=== PATIENT | female | born 1980 | race Caucasian/White ===

== ENCOUNTER 2017-11-20 09:25 | Emergency (ER) | payer MEDICAID ==
[2017-11-20 09:36] VITALS: BMI 25.2
[2017-11-20 09:38] VITALS: BP 128/91; PULSE 68; RESP 20; TEMP 98.1; O2SAT 100
--- NOTE | 2017-11-20 09:42 | C.PDOC ---
History Of Present Illness Pt is a 36 yr old female who states that for 3 days she has been having back pain. The pain occurred while at work when she was bending down (works construction/cleaning). The pain starts in the lower back and it radiates to the left leg (to the left foot) and also travels to the neck (which is not unusual for her when she gets back pain). Pt has had low back before but didn' t travel to the back before. Pt took ibuprofen 800 mg at 4:30 AM today. The medication did help a little. On a 1-10 scale, her pain is a "8". When she sits too long and goes to standing that makes the pain worse. Moving makes the pain worse. Pt has not seen a doctor in the past for the back pain but does have an appointment for next Wednesday. Pt states she is not . PMD: [facility] . Time Seen by Provider: 11/20/17 09:39 Chief Complaint (Nursing): Back Pain Onset/Duration Of Symptoms: Days Past Medical History Reviewed: Historical Data, Nursing Documentation, Vital Signs Vital Signs: Last Vital Signs Temp 98.1 F 11/20/17 09:35 Pulse 68 11/20/17 09:35 Resp 20 11/20/17 09:35 BP 128/91 H 11/20/17 09:35 Pulse Ox 100 11/20/17 09:53 - Medical History PMH: Asthma - [facility] Procedures MANUAL ASSIST DELIV NEC (01/08/15) MEDICAL INDUCTION LABOR (01/08/15) NEBULIZER THERAPY (09/11/14) REPAIR OB LACERATION NEC (01/08/15) Family History: States: CAD, Other Other Family History: Aunt with cancer - Social History Hx Tobacco Use: No Hx Alcohol Use: No Hx Substance Use: No - Immunization History Hx Tetanus Toxoid Vaccination: Yes Hx Influenza Vaccination: No Hx Pneumococcal Vaccination: No ED Course And Treatment O2 Sat by Pulse Oximetry: 100 Disposition - Disposition Disposition: HOME/ ROUTINE Disposition Time: 10:55 Condition: IMPROVED Additional Instructions: Sra. Ya, maria luisa por permitirnos atenderlo horola. Regrese a la skinny de emergencias si claudette sntomas empeoran o si tiene algn problema. Por favor, tome el medicamento que se detalla a continuacin segn lo prescrito. Oksana puede aplicar garrett compresa fra en la espalda para aliviar el dolor adicional. Por favor, jostin un seguimiento con garcia mdico en [place] la prxima semana para garrett evaluacin adicional. Prescriptions: Acetaminophen [Tylenol 325mg tab] 3 tab PO Q8 PRN #60 tab PRN Reason: Pain, Moderate (4-7) diaZEpam [Valium] 1 tab PO TID PRN #10 tab PRN Reason: Muscle Spasm Ibuprofen [Motrin] 1 tab PO Q8 PRN #30 tab PRN Reason: Pain, Moderate (4-7) Lidocaine 5% [Lidoderm] 1 ea TD Q8 PRN #15 patch PRN Reason: Pain, Moderate (4-7) Instructions: Low Back Pain in Adults, Radiculopathy Forms: Gen Discharge Inst Nauruan Print Language: MALTESE - POA Present On Arrival: None - Clinical Impression Clinical Impression: Low back pain, Lumbar radiculopathy
[2017-11-20] MEDS ORDERED: Lidocaine 5% Patch TD STA (09:58)
[2017-11-20] MEDS ORDERED: Lidocaine 5% Patch TD ONE (10:09)
== END 2017-11-20 11:24 | disposition home or self-care (01) ==
LOC: C.ER 09:25
DX: M54.16 Radiculopathy, lumbar region (principal); M54.5 Low back pain
CPT/HCPCS: 96372; 99285; J1885